=== PATIENT | male | born 1945 | race African-American/Black ===

== ENCOUNTER 2017-01-16 09:29 | Emergency (ER) | payer OTHER ==
[~2017-01-16] VITALS: Ht 182.9 cm; Wt 131.5 kg
--- NOTE | ~2017-01-16 | EKG ---
[address] [address] ELECTROCARDIOGRAM REPORT Name: OSEI SOTO Room #: [facility]#: [id number] Admission: 01/16/17 Attend Phys: Discharge: 01/16/17 Date of : 49 Report #: [id number] THIS REPORT FOR: //name// [facility] ED Test Date: 2017-01-16 Test Time: 09:59:18 Pat Name: OSEI SOTO Department: Room: Gender: Insurance Verification Clerk: Guadalupe ROJAS : 1945 Requested By: Reagan Clark Order Number: [id number] MD: Leroy Borges Measurements Intervals [place] Rate: 57 P: 59 TN: 170 QRS: -3 QRSD: 97 T: 32 QT: 411 QTc: 401 Interpretive Statements Sinus rhythm Compared to ECG 01/16/2017 09:55:14 Atrial fibrillation no longer present Electronically Signed On 01-16-2017 15:44:59 CDT by Leroy Borges [email or web address] <ELECTRONICALLY SIGNED> By: Leroy Borges MD 01/16/17 1544 0959 0959 Leroy Borges MD /STAS
--- NOTE | ~2017-01-16 | EKG ---
[address] [address] ELECTROCARDIOGRAM REPORT Name: OSEI SOTO Room #: [facility]#: [id number] Admission: 01/16/17 Attend Phys: Discharge: 01/16/17 Date of : 49 Report #: [id number] THIS REPORT FOR: //name// [facility] ED Test Date: 2017-01-16 Test Time: 09:55:14 Pat Name: OSEI SOTO Department: Room: Gender: M Refrigeration Operator: [id number] : 1945 Requested By: Reagan Clark Order Number: [id number] MD: Leroy Borges Measurements Intervals [place] Rate: 103 P: [place]: QRS: -12 QRSD: 92 T: 72 QT: 385 QTc: 504 Interpretive Statements Atrial fibrillation Compared to ECG 08/19/2015 16:11:49 Electronically Signed On 01-16-2017 13:03:55 CDT by Leroy Borges [email or web address] <ELECTRONICALLY SIGNED> By: Leroy Borges MD 01/16/17 1303 0955 0955 Leroy Borges MD /STAS
[~2017-01-16 09:29] MED LIST: ASPIRIN325 PO; ATENOLOL 100MG100 MG PO; CATAPRES-TTS 10.1 MG; CATAPRES0.2 MG PO; CIPROFLOXACIN500 M1 PO; CLONIDINE0.1 PO; COUMADIN7.5 MG PO; COZAAR 50 MG TA50 M2 PO; DILTIAZEM 24HR240 M1 PO; FLUZONE 2045 MCG/010; HCTZ; HYDROCHLOROTHIA25 M1 PO; HYDROCODON-ACE1 EAC1 PO; HYDROCODON-ACE1 EAC7; K-DUR 20 MEQ T20 MEQ PO; LASIX 40 MG TAB40 M2 PO; NORVASC10 MG PO; OSELB75 PO; PNEUMOVAX25 MCG/0.5; POTASSIUM20 PO; PRADAXA150 MG PO; PROZAC 10 MG CA10 M1; PROZAC 20 MG20 M1 PO; PROZAC 20 MG20 MG PO; SIMVASTATIN40 MG PO; TOPROL XL25 MG PO; ZANTAC
[2017-01-16 09:55] LABS: ABSOLUTE NEUTROPHILS 5.8 thou/uL (1.4-8.2); BASOPHILS 1.1 % (0.0-2.0); EOSINOPHILS 4.4 % (0.0-3.0); HEMATOCRIT 37.2 % (42.0-52.0); HEMOGLOBIN 12.1 gm/dL (14.0-18.0); LYMPHOCYTES 11.2 % (24.0-44.0); MANUAL DIFF NO; MCH 29.4 pg (26.0-34.0); MCHC 32.5 g/dL (28.0-37.0); MCV 90.4 fL (80.0-100.0); PLATELET COUNT 218 thou/uL (150-400); POLYS 74.3 % (36.0-66.0); RBC 4.11 mil/uL (4.50-6.00); RDW 15.5 % (10.5-14.5); WBC 7.9 thou/uL (4.0-11.0)
[2017-01-16 10:06] LABS: ANION GAP 9 mmol/L (7-16); BUN 15 mg/dL (7-18); CALCIUM 8.8 mg/dL (8.5-10.1); CHLORIDE 106 mmol/L (98-107); CO2 24 mmol/L (21-32); CREATININE 1.1 mg/dL (0.7-1.3); GLUCOSE 107 mg/dL (74-106); POTASSIUM 3.5 mmol/L (3.5-5.1); SODIUM 139 mmol/L (136-145)
[2017-01-16 10:15] LABS: TROPONIN-I < 0.04 ng/mL (<0.04-0.07)
== END 2017-01-16 11:55 | disposition home or self-care (01) ==
LOC: ER 09:29
PROVIDERS: Nurse Practitioner
DX: I11.0 Hypertensive heart disease with heart failure (principal); I50.9 Heart failure, unspecified; Z86.73 Personal history of transient ischemic attack (TIA), and cerebral infarction without residual deficits; Z87.440 Personal history of urinary (tract) infections; Z85.46 Personal history of malignant neoplasm of prostate; Z88.6 Allergy status to analgesic agent

== ENCOUNTER 2017-01-29 12:02 | Emergency (ER) | payer OTHER ==
[~2017-01-29] VITALS: Ht 182.9 cm; Wt 131.5 kg
--- NOTE | ~2017-01-29 | EKG ---
[address] [place] [address] [facility] [address] [place] [address] ELECTROCARDIOGRAM REPORT Name: OSEI SOTO Room #: [facility]#: [id number] Admission: 01/29/17 Attend Phys: Discharge: Date of : 49 Report #: [id number] THIS REPORT FOR: //name// [facility] ED Test Date: 2017-01-29 Test Time: 14:15:12 Pat Name: OSEI SOTO Department: Room: Gender: M Picker Feeder: Guadalupe ROJAS : 1945 Requested By: Uday Matthews Order Number: [id number] MD: Leroy Borges Measurements Intervals [place] Rate: 66 P: LA: QRS: -17 QRSD: 90 T: 13 QT: 463 QTc: 486 Interpretive Statements Atrial fibrillation Inferior infarct, old Compared to ECG 01/16/2017 09:59:18 Myocardial infarct finding now present Sinus rhythm no longer present Electronically Signed On 01-29-2017 15:49:12 CDT by Leroy Borges [email or web address] <ELECTRONICALLY SIGNED> By: Leroy Borges MD 01/29/17 1549 D: 10/1414 141 Leroy Borges MD /STAS
[2017-01-29 13:59] LABS: ABSOLUTE NEUTROPHILS 6.2 thou/uL (1.4-8.2); BASOPHILS 0.9 % (0.0-2.0); EOSINOPHILS 4.3 % (0.0-3.0); HEMOGLOBIN 11.9 gm/dL (14.0-18.0); LYMPHOCYTES 12.6 % (24.0-44.0); MANUAL DIFF NO; MCH 29.4 pg (26.0-34.0); MCHC 33.1 g/dL (28.0-37.0); MCV 88.9 fL (80.0-100.0); PLATELET COUNT 236 thou/uL (150-400); POLYS 72.2 % (36.0-66.0); RBC 4.05 mil/uL (4.50-6.00); RDW 15.4 % (10.5-14.5); WBC 8.6 thou/uL (4.0-11.0)
[2017-01-29 14:08] LABS: ANION GAP 9 mmol/L (7-16); BUN 13 mg/dL (7-18); CALCIUM 9.2 mg/dL (8.5-10.1); CHLORIDE 104 mmol/L (98-107); CO2 23 mmol/L (21-32); CREATININE 1.2 mg/dL (0.7-1.3); GLUCOSE 109 mg/dL (74-106); POTASSIUM 4.1 mmol/L (3.5-5.1); SODIUM 136 mmol/L (136-145)
[2017-01-29 14:16] LABS: ALBUMIN 3.6 g/dL (3.4-5.0); ALKALINE PHOSPHATASE 72 U/L (46-116); SGOT 21 U/L (15-37); SGPT 22 U/L (30-65); TOTAL BILIRUBIN 0.7 mg/dL (<0.1-1.0); TOTAL PROTEIN 7.1 g/dL (6.4-8.2); TROPONIN-I < 0.04 ng/mL (<0.04-0.07)
[2017-01-29] MEDS ORDERED: HEPARIN SO5000 UNIT2 SUBQ (15:29)
[2017-01-29] MEDS ORDERED: LEVAQUIN 500 M500 M2 PO (16:37)
[2017-01-29] MEDS ORDERED: VENTOLIN HFA 1818 GM INH (16:38)
== END 2017-01-29 17:04 | disposition home or self-care (01) ==
LOC: ER 12:02
PROVIDERS: Physician Assistant
DX: J18.9 Pneumonia, unspecified organism (principal); I11.0 Hypertensive heart disease with heart failure; I50.9 Heart failure, unspecified; Z86.73 Personal history of transient ischemic attack (TIA), and cerebral infarction without residual deficits; Z87.440 Personal history of urinary (tract) infections; Z85.46 Personal history of malignant neoplasm of prostate; Z88.6 Allergy status to analgesic agent

== ENCOUNTER 2017-08-22 13:32 | Inpatient (IN) | payer OTHER ==
[~2017-08-22] VITALS: Ht 182.9 cm; Wt 131.5 kg
--- NOTE | ~2017-08-22 | HC ---
[facility] [place] [address] [place] [address] CONSULTATION Name: OSEI SOTO Room #: 456-P [facility] IN M.R.#: [id number] Admission: 08/22/17 Attend Phys: Barrington Armstrong DO Discharge: Date of : 49 Report #: [id number] THIS REPORT FOR: //name// CC: Barrington STATON REASON FOR CONSULTATION: Near syncope. HISTORY OF PRESENT ILLNESS: The patient is a 71-year-old gentleman with a history of permanent atrial fibrillation and longstanding hypertension. His atrial fibrillation has been rate controlled and largely asymptomatic. He has a history of normal coronary vasculature in 2013 and normal left ventricular systolic function. He now presents with a 2-3 week history of lightheadedness and orthostatic dizziness. No fevers, chills, chest pain, shortness of breath, nausea, vomiting or diarrhea. He has felt well other than these episodes of exhaustion and near syncope. There have been no recent medicine changes, although about a month ago, I saw him in the office and he reported that he had run out of his clonidine and blood pressure readings have been higher than usual. It sounds like he recently had this medicine refilled. His blood pressure in the office a month ago was 128/80. ALLERGIES: To ASPIRIN AND NAPROSYN. MEDICATIONS: Include amlodipine 10 mg daily, atenolol 100 mg daily, atorvastatin 40 mg daily, clonidine 0.2 mg 3 times a day, Pradaxa 150 mg twice daily, Prozac 40 mg daily, Lasix 40 mg daily, irbesartan 300 mg daily, and potassium 20 mEq daily. PAST MEDICAL HISTORY: Medical records have been reviewed and include a history of colon cancer, prostate cancer, sleep apnea, and permanent atrial fibrillation. SOCIAL HISTORY: He is a nonsmoker and nondrinker. FAMILY HISTORY: Notable for parents with strokes. REVIEW OF SYSTEMS: All systems negative except as that noted above. PHYSICAL EXAMINATION: GENERAL: Reveals a pleasant gentleman, in no distress. VITAL SIGNS: Blood pressure is 126/70, heart rate of 83 and irregular, he is afebrile. HEENT: There are neither xanthelasma, subcutaneous xanthomata, oral mucosal or digital cyanosis or kyphoscoliosis present. CHEST: Clear to auscultation and percussion. [facility] [address] [place] [address] CONSULTATION Name: OSEI SOTO Room #: [address] [place] [address] IN M.R.#: [id number] Admission: 08/22/17 Attend Phys: Barrington Armstrong DO Discharge: Date of : 49 Report #: [id number] CARDIOVASCULAR: An irregularly irregular rhythm with normal S1, S2. ABDOMEN: Soft and nontender. EXTREMITIES: Without cyanosis, clubbing or edema. Radial pulses are 2+. NEUROLOGIC: He is alert with a nonfocal exam. LABORATORY DATA: Sodium is 138, potassium 3.2, creatinine 1.6, admitting creatinine was 2.3. ProBNP of 561. Troponin of 0. White count 7.6, hemoglobin 11, hematocrit 35, platelet count 217. Chest x-ray is normal. CT of the head is normal. EKG: Atrial fibrillation with poor R-wave progression. IMPRESSION: 1. Permanent atrial fibrillation. 2. Symptomatic hypotension and orthostasis related to volume depletion and/or medications. 3. Acute kidney injury. 4. Chronic diastolic heart failure in the setting of normal left ventricular systolic function. 5. Sleep apnea. 6. Hypercoagulable. RECOMMENDATIONS: 1. Hold diuretics. 2. Continued use of atenolol for rate control of his permanent atrial fibrillation. 3. Resume anticoagulant therapy. 4. Acute kidney injury should resolve with gentle hydration. By: 0741 [id number] Cj Torres MD, FACC /nt
--- NOTE | ~2017-08-22 | 2DMMODE ---
[facility] [address] [place] [address] 2 D/M-MODE ECHOCARDIOGRAM Name: OSEI SOTO Room #: 456-P [facility] IN M.R.#: [id number] Admission: 08/22/17 Attend Phys: Barrington Armstrong, Discharge: Date of : 49 Date of Service: 08/23/17 0906 Report #: [id number] THIS REPORT FOR: //name// APPROVED REPORT Study performed: 08/23/2017 08:15:55 EXAM: Comprehensive 2D, Doppler, and color-flow Echocardiogram Patient Location: Echo lab Room #: [facility] Status: routine BSA: 2.49 HR: 71 bpm BP: 126/74 mmHg Rhythm: Atrial Fibrillation Other Information Study Quality: Adequate Indications Elevated BNP. Hx: Afib, CHF, TIA 2D Dimensions RVDd: 44.03 mm LVEF(%): 63.47 (>50%) IVSd: 12.23 (7-11mm) LVOT Diam: 22.60 (18-24mm) LVDd: 49.05 mm PWd: 11.63 (7-11mm) Ascending Ao: 35.91 (22-36mm) LVDs: 32.12 (25-40mm) Aortic Root: 39.07 mm Acndelario's LVEF: 63.47 % Volumes Left Atrial Volume (Systole) Single Plane 4CH: 83.56 mL Single Plane 2CH: 106.97 mL LA ESV Index: 42.00 mL/m2 Aortic Valve AoV Peak Allen.: 1.18 m/s AO Peak Gr.: 5.62 mmHg LVOT Max P.29 mmHg LVOT Max V: 0.75 m/s ZACHERY Vmax: 2.56 cm2 Mitral Valve MV Decel. Time: 166.70 ms MV E Max Allen.: 1.15 m/s [facility] [place] [place] [address] 2 D/M-MODE ECHOCARDIOGRAM Name: OSEI SOTO Room #: 456-P [facility] IN .R.#: [id number] Admission: 08/22/17 Attend Phys: Barrington Armstrong, Discharge: Date of : 49 Date of Service: 08/23/17 0906 Report #: [id number] Pulmonary Valve PV Peak Allen.: 0.78 m/s PV Peak Gr.: 2.42 mmHg Tricuspid Valve TR Peak Allen.: 2.32 m/s RAP Estimate: 5.00 mmHg TR Peak Gr.: 21.63 mmHg PA Pressure: 27.00 mmHg Left Ventricle The left ventricle is normal size. There is normal LV segmental wall motion. Mild concentric left ventricular hypertrophy. Left ventricular systolic function is normal. LVEF is 55-60%. This study is not technically sufficient to allow evaluation of the LV diastolic function due to atrial fibrillation. Right Ventricle The right ventricle is normal size. The right ventricular systolic function is normal. Atria Left atrium is moderately dilated. Right atrium is mildly dilated. Aortic Valve Aortic valve is mildly calcified, trileaflet. No aortic regurgitation is present. There is no aortic valvular stenosis. Mitral Valve Mild mitral annular calcification. Moderate mitral regurgitation. Tricuspid Valve The tricuspid valve is normal in structure. Mild to moderate tricuspid regurgitation. Estimated PAP is 25-30mmHg. Pulmonic Valve The pulmonary valve is normal in structure. Trace pulmonic regurgitation. Great Vessels Aortic root is mildly dilated. The ascending aorta is normal in size. IVC is normal in size and collapses >50% with inspiration. Pericardium [facility] [address] [place] [address] 2 D/M-MODE ECHOCARDIOGRAM Name: OSEI SOTO Room #: 456-P [facility] IN ..#: [id number] Admission: 08/22/17 Attend Phys: Barrington Armstrong, Discharge: Date of : 49 Date of Service: 08/23/17 0906 Report #: [id number] There is no pericardial effusion. <Conclusion> Left ventricular systolic function is normal. There is normal LV segmental wall motion. LVEF 55-60%. Left atrium is moderately dilated. Aortic valve is mildly calcified, trileaflet. No aortic valvular stenosis or insufficiency. Mild mitral annular calcification. Moderate mitral regurgitation. Mild to moderate tricuspid regurgitation. Estimated pulmonary artery pressure of 25-30mmHg. There is no pericardial effusion. <ELECTRONICALLY SIGNED> By: Cj Torres MD, [facility] 08/23/17905 5 5 Cj Torres MD, FAC /INF
--- NOTE | ~2017-08-22 | EKG ---
[address] [address] ELECTROCARDIOGRAM REPORT Name: OSEI SOTO Room #: 170-5 ADM IN M.R.#: [id number] Admission: 08/22/17 Attend Phys: Barrington Armstrong DO Discharge: Date of : 49 Report #: [id number] THIS REPORT FOR: //name// [facility] ED Test Date: 2017-08-22 Test Time: 13:41:24 Pat Name: OSEI SOTO Department: Room: Gender: M Cryptologist: : 1945 Requested By: Nate Harris Order Number: [id number] MD: Leroy Borges Measurements Intervals [place] Rate: 88 P: [place]: QRS: -17 QRSD: 98 T: 39 QT: 465 QTc: 563 Interpretive Statements Atrial fibrillation Inferior infarct, old Compared to ECG 01/29/2017 14:15:12 Myocardial infarct finding still present Electronically Signed On 08-22-2017 17:05:13 CDT by Leroy Borges [email or web address] <ELECTRONICALLY SIGNED> By: Leroy Borges MD 08/22/17 1705 1341 1341 Leroy Borges MD /STAS
[~2017-08-22 13:32] MED LIST changes: +HEPARIN SO5000 UNIT2 SUBQ; +LEVAQUIN 500 M500 M2 PO; +VENTOLIN HFA 1818 GM INH
[2017-08-22 13:36] VITALS: BP 103/68; BP 128/80
[2017-08-22 13:58] LABS: ABSOLUTE NEUTROPHILS 5.9 thou/uL (1.4-8.2); BASOPHILS 1.1 % (0.0-2.0); HEMATOCRIT 37.6 % (42.0-52.0); LYMPHOCYTES 16.4 % (24.0-44.0); MCH 28.6 pg (26.0-34.0); MCHC 31.9 g/dL (28.0-37.0); MCV 89.7 fL (80.0-100.0); MONOCYTES 9.3 % (1.0-8.0); PLATELET COUNT 256 thou/uL (150-400); POLYS 69.2 % (36.0-66.0); RDW 15.7 % (10.5-14.5); WBC 8.5 thou/uL (4.0-11.0)
[2017-08-22 14:06] LABS: ANION GAP 9 mmol/L (7-16); BUN 36 mg/dL (7-18); CHLORIDE 102 mmol/L (98-107); CO2 26 mmol/L (21-32); CREATININE 2.3 mg/dL (0.7-1.3); GLUCOSE 125 mg/dL (74-106); POTASSIUM 3.3 mmol/L (3.5-5.1); SODIUM 137 mmol/L (136-145)
[2017-08-22 14:14] LABS: ALBUMIN 3.6 g/dL (3.4-5.0); LIPASE 465 U/L (73-393); SGOT 17 U/L (15-37); SGPT 27 U/L (30-65); TOTAL BILIRUBIN 0.5 mg/dL (<0.1-1.0); TOTAL PROTEIN 7.2 g/dL (6.4-8.2); TROPONIN-I < 0.04 ng/mL (<0.06)
[2017-08-22 15:41] LABS: URINE BILIRUBIN NEGATIVE (Negative); URINE BLOOD NEGATIVE (Negative); URINE CLARITY CLEAR; URINE COLOR YELLOW; URINE GLUCOSE-RANDOM* NEGATIVE (Negative); URINE KETONES NEGATIVE (Negative); URINE LEUKOCYTES-REFLEX NEGATIVE (Negative); URINE NITRITE-REFLEX NEGATIVE (Negative); URINE PROTEIN (DIPSTICK) NEGATIVE (Negative); URINE SPECIFIC GRAVITY 1.015 (1.005-1.035); URINE UROBILINOGEN 0.2 E.U./dl (0.2-1.0)
[2017-08-22 16:55] VITALS: BP 104/66
[2017-08-22 17:46] LABS: POTASSIUM 3.5 mmol/L (3.5-5.1)
[2017-08-22 17:52] LABS: CHOLESTEROL 147 mg/dL (<200); HDL CHOLESTEROL 33 mg/dL (>40); LDL CHOLESTEROL 96 mg/dL (<100); SERUM ASSESSMENT Clear; TC:HDL 4.5 Ratio (Not establshd); TRIGLYCERIDE 92 mg/dL (<150); VLDL 18 mg/dL (<40)
[2017-08-22 18:19] LABS: FOLIC ACID 7.1 ng/mL (8.6-58.9); TSH 1.737 uIU/mL (0.358-3.740)
[2017-08-22 20:12] VITALS: BP 107/67
[2017-08-23] VITALS: BP 122/77
[2017-08-23] MEDS ORDERED: NORCO 10-325 T1 EACH PO (00:53)
[2017-08-23] MEDS ORDERED: IRBESARTAN300 MG PO (00:55)
[2017-08-23] MEDS ORDERED: VESICARE10 M1 PO (00:56)
[2017-08-23] MEDS ORDERED: PRADAXA150 MG PO (00:58)
[2017-08-23 04:09] VITALS: BP 126/74
[2017-08-23 05:18] LABS: ABSOLUTE NEUTROPHILS 4.9 thou/uL (1.4-8.2); BASOPHILS 0.6 % (0.0-2.0); EOSINOPHILS 5.4 % (0.0-3.0); HEMATOCRIT 35.8 % (42.0-52.0); HEMOGLOBIN 11.3 gm/dL (14.0-18.0); LYMPHOCYTES 19.7 % (24.0-44.0); MCH 28.5 pg (26.0-34.0); MCHC 31.7 g/dL (28.0-37.0); MONOCYTES 10.2 % (1.0-8.0); PLATELET COUNT 217 thou/uL (150-400); POLYS 64.1 % (36.0-66.0); RBC 3.97 mil/uL (4.50-6.00); RDW 15.5 % (10.5-14.5); WBC 7.6 thou/uL (4.0-11.0)
[2017-08-23 05:38] LABS: CALCIUM 8.9 mg/dL (8.5-10.1); CREATININE 1.6 mg/dL (0.7-1.3); MAGNESIUM 1.8 mg/dL (1.8-2.4); POTASSIUM 3.2 mmol/L (3.5-5.1)
[2017-08-23 08:32] VITALS: BP 147/93
[2017-08-23 15:58] VITALS: BP 111/65
[2017-08-23 20:35] VITALS: BP 103/76
[2017-08-23 22:34] VITALS: BP 124/85
[2017-08-24 07:40] VITALS: BP 143/99
[2017-08-24 07:50] LABS: ABSOLUTE NEUTROPHILS 5.8 thou/uL (1.4-8.2); BASOPHILS 0.7 % (0.0-2.0); EOSINOPHILS 4.8 % (0.0-3.0); HEMATOCRIT 37.2 % (42.0-52.0); HEMOGLOBIN 11.9 gm/dL (14.0-18.0); MCH 28.5 pg (26.0-34.0); MCV 89.1 fL (80.0-100.0); PLATELET COUNT 229 thou/uL (150-400); POLYS 70.5 % (36.0-66.0); RBC 4.17 mil/uL (4.50-6.00); RDW 15.4 % (10.5-14.5); WBC 8.3 thou/uL (4.0-11.0)
[2017-08-24 08:11] LABS: CALCIUM 8.6 mg/dL (8.5-10.1); CREATININE 1.4 mg/dL (0.7-1.3); POTASSIUM 3.8 mmol/L (3.5-5.1)
[2017-08-24 12:39] VITALS: BP 143/99
== END 2017-08-24 14:12 | disposition home or self-care (01) | DRG 682 ==
LOC: ER 13:32 → 4W 16:32 → EROBS 16:32 → 4W 18:19 → SICU 08-23 22:32 → ENTRNSPT 08-24 13:57 → EDTRNSPTSTS 08-24 13:59 → SICU 08-24 14:12
PROVIDERS: Emergency Medicine; Family Medicine; Nurse Practitioner; Physician Assistant
DX: N17.9 Acute kidney failure, unspecified (principal); I50.33 Acute on chronic diastolic (congestive) heart failure; D68.59 Other primary thrombophilia; I95.1 Orthostatic hypotension; E87.6 Hypokalemia; I11.0 Hypertensive heart disease with heart failure; T50.905A Adverse effect of unspecified drugs, medicaments and biological substances, initial encounter; E78.5 Hyperlipidemia, unspecified; I48.2 Chronic atrial fibrillation; E86.9 Volume depletion, unspecified; G47.33 Obstructive sleep apnea (adult) (pediatric); Z79.899 Other long term (current) drug therapy; Z86.73 Personal history of transient ischemic attack (TIA), and cerebral infarction without residual deficits; Z85.46 Personal history of malignant neoplasm of prostate; Z88.8 Allergy status to other drugs, medicaments and biological substances; Z87.891 Personal history of nicotine dependence; Z87.440 Personal history of urinary (tract) infections; Z82.49 Family history of ischemic heart disease and other diseases of the circulatory system; Z88.6 Allergy status to analgesic agent; Z85.038 Personal history of other malignant neoplasm of large intestine
CPT/HCPCS: 10045; 15002

== ENCOUNTER 2019-05-21 02:01 | Inpatient (IN) | payer OTHER ==
[~2019-05-21] VITALS: Ht 152.4 cm; Wt 132.9 kg
[~2019-05-21 02:01] MED LIST changes: +IRBESARTAN300 MG PO; +NORCO 10-325 T1 EACH PO; +VESICARE10 M1 PO
[2019-05-21 02:03] VITALS: BP 106/88
[2019-05-21 02:22] LABS: URINE BILIRUBIN NEGATIVE (Negative); URINE BLOOD TRACE (Negative); URINE CLARITY CLEAR; URINE COLOR YELLOW; URINE GLUCOSE-RANDOM* NEGATIVE (Negative); URINE KETONES NEGATIVE (Negative); URINE LEUKOCYTES-REFLEX NEGATIVE (Negative); URINE NITRITE-REFLEX NEGATIVE (Negative); URINE PROTEIN (DIPSTICK) NEGATIVE (Negative); URINE SPECIFIC GRAVITY 1.025 (1.005-1.035)
[2019-05-21] MEDS ORDERED: LIPITOR 40 MG T40 M1 PO (02:56)
[2019-05-21] MEDS ORDERED: CLONIDINE HCL0.2 M2 PO (02:57)
[2019-05-21 03:00] LABS: ABSOLUTE NEUTROPHILS 6.2 thou/uL (1.4-8.2); BASOPHILS 0.3 % (0.0-2.0); EOSINOPHILS 0.4 % (0.0-3.0); HEMATOCRIT 44.6 % (42.0-52.0); HEMOGLOBIN 14.5 gm/dL (14.0-18.0); LYMPHOCYTES 4.9 % (24.0-44.0); MCH 32.3 pg (26.0-34.0); MCHC 32.6 g/dL (28.0-37.0); MCV 99.2 fL (80.0-100.0); PLATELET COUNT 202 thou/uL (150-400); POLYS 84.4 % (36.0-66.0); RBC 4.49 mil/uL (4.50-6.00); RDW 15.5 % (10.5-14.5); WBC 7.4 thou/uL (4.0-11.0)
[2019-05-21] MEDS ORDERED: ERGOCAL2500 UNIT PO (03:00)
[2019-05-21] MEDS ORDERED: IRON325 PO (03:01)
[2019-05-21] MEDS ORDERED: LASIX 40 MG TAB40 MG PO (03:02)
[2019-05-21] MEDS ORDERED: NORCO 10-325 T1 EAC1 PO (03:04)
[2019-05-21 03:08] LABS: ANION GAP 13 mmol/L (7-16); BUN 17 mg/dL (7-18); CALCIUM 8.3 mg/dL (8.5-10.1); CHLORIDE 102 mmol/L (98-107); CO2 24 mmol/L (21-32); CREATININE 1.3 mg/dL (0.7-1.3); GLUCOSE 133 mg/dL (74-106); POTASSIUM 3.6 mmol/L (3.5-5.1); SODIUM 139 mmol/L (136-145)
[2019-05-21 03:14] LABS: ALBUMIN 3.3 g/dL (3.4-5.0); DIRECT BILIRUBIN < 0.1 mg/dL (<0.1-0.2); SGOT 33 U/L (15-37); SGPT 25 U/L (30-65); TOTAL BILIRUBIN 0.3 mg/dL (<0.1-1.0); TOTAL PROTEIN 7.6 g/dL (6.4-8.2)
[2019-05-21 04:11] VITALS: BP 125/80
[2019-05-21 05:47] VITALS: BP 117/74
[2019-05-21 08:00] VITALS: BP 109/67
--- NOTE | 2019-05-21 12:44 | 2DMMODE ---
[facility] [place] [address] 2 D/M-MODE ECHOCARDIOGRAM Name: OSEI SOTO Room #: 218-P ADM IN M.R.#: [id number] Admission: 05/21/19 Attend Phys: Omar Gibson MD Discharge: Date of : 49 Report #: [id number] THIS REPORT FOR: cc: MAICOL STATON KIMBERLY A. ARNP Lundgren, Craig H. MD [facility] ~ THIS REPORT FOR: //name// APPROVED REPORT Study performed: 05/21/2019 10:27:36 EXAM: Comprehensive 2D, Doppler, and color-flow Echocardiogram Patient Location: Bedside Room #: 218 Status: routine BSA: 2.49 HR: 80 bpm BP: 117/74 mmHg Rhythm: Atrial Fibrillation Other Information Study Quality: Adequate Risk Factors: Cardiac Risk Factors: HTN Indications Atrial Fibrillation Hypertension/HDD Inferior UT 2D Dimensions IVSd: 11.94 (7-11mm) LVOT Diam: 21.00 (18-24mm) LVDd: 53.77 mm PWd: 11.87 (7-11mm) Ascending Ao: 37.37 (22-36mm) LVDs: 39.87 (25-40mm) Aortic Root: 33.35 mm LV Single Plane 4CH: 68.46 % LV Single Plane 2CH: 55.42 % Biplane EF: 62.3 % Volumes Left Atrial Volume (Systole) [facility] [address] [place] [address] 2 D/M-MODE ECHOCARDIOGRAM Name: OSEI SOTO Room #: 218-P ADM IN M.R.#: [id number] Admission: 05/21/19 Attend Phys: Omar Gibson MD Discharge: Date of : 49 Report #: [id number] Single Plane 4CH: 100.55 mL Single Plane 2CH: 72.92 mL LA ESV Index: 38.00 mL/m2 Aortic Valve AoV Peak Allen.: 1.28 m/s AO Peak Gr.: 7.13 mmHg LVOT Max P.06 mmHg LVOT Max V: 1.01 m/s ZACHERY Vmax: 2.63 cm2 Pulmonary Valve PV Peak Allen.: 0.89 m/s PV Peak Gr.: 3.14 mmHg Tricuspid Valve TR Peak Allen.: 2.84 m/s RAP Estimate: 7.00 mmHg TR Peak Gr.: 32.48 mmHg PA Pressure: 40.00 mmHg Left Ventricle The left ventricle is normal size. There is normal LV segmental wall motion. Mild concentric left ventricular hypertrophy. Left ventricular systolic function is normal. The left ventricular ejection fraction is within the normal range. LVEF is 55-60%. This study is not technically sufficient to allow evaluation of the LV diastolic function due to atrial fibrillation. Right Ventricle The right ventricle is normal size. The right ventricular systolic function is normal. Atria Left atrium is mildly dilated. Right atrium is dilated. Aortic Valve Aortic valve is mildly calcified. No aortic regurgitation is present. There is no aortic valvular stenosis. Mitral Valve The mitral valve is normal in structure. Moderate mitral regurgitation. No evidence of mitral valve stenosis. Tricuspid Valve The tricuspid valve is normal in structure. Moderate tricuspid regurgitation. Pulmonary artery pressure is 40 mmHg. Pulmonic Valve The pulmonary valve is normal in structure. Trace pulmonic [facility] [address] [place] [address] 2 D/M-MODE ECHOCARDIOGRAM Name: OSEI SOTOIC Room #: 218-P ADM IN M.R.#: [id number] Admission: 05/21/19 Attend Phys: Omar Gibson MD Discharge: Date of : 49 Report #: [id number] regurgitation. Great Vessels The aortic root is normal in size. The ascending aorta is normal in size. IVC is normal in size and collapses >50% with inspiration. Pericardium There is no pericardial effusion. <Conclusion> Left ventricular systolic function is normal. There is normal LV segmental wall motion. LVEF is 55-60%. Both atria are dilated. Aortic valve is mildly calcified. No aortic regurgitation or stenosis The mitral valve is normal in structure Moderate mitral regurgitation. Moderate tricuspid regurgitation. Pulmonary artery pressure of 40 mmHg. There is no pericardial effusion. <ELECTRONICALLY SIGNED> By: Cj Torres MD, [facility] 05/21/19 1243 1243 1243 Cj Torres MD, [facility] /INF
[2019-05-21 16:30] VITALS: BP 109/69
--- NOTE | 2019-05-21 17:08 | NUR ---
ASSUMED CARE AT 0700, SHIFT ASSESSMENT DONE, MEDS GIVEN, VSS. DENIES PAIN, NAUSEA, VOMITNG. UP WITH STANDBY ASSIST. ROOM AIR, NSR ON TELE. POSITIVE FOR FLU, ON DROPLET PRECAUTIONS. HR WAS HIGH THIS AM, ORDER FOR CARDIZEM, STARTED THIS AM, WAS TURNED OFF FOR LOW HR AT 1300, AT 1600, PT'S HR NOTED TO BE HIGH AGAIN, IN THE 90'S, SO DRIP WAS STARTED AGAIN AT 5 MG/HR. WILL CONTINUE TO ASSESS AND ASSIST WITH ADLs NEEDED.
[2019-05-21 20:04] VITALS: BP 128/84
--- NOTE | 2019-05-21 23:05 | NUR ---
ASSESSMENT: PT REMAIN ALERT AND ORIENT TIMES THREE. SLEEPY YET EASY TO AROUSE. PRESENTING LOW GRADE TEMP OF 37.6, SWATHI STARTED THIS SHIFT. ALL QUESTIONS ANSWERED. RECIEVED BREATHING TREATMENTS WELL. DENIES COUGH AT THIS TIME. CARDIZEM INFUSING AT 5MG/HR. HR STABLE. WILL CONTINUE TO MONITOR.
[2019-05-22] VITALS: BP 91/50
--- NOTE | 2019-05-22 00:35 | NUR ---
ASSESSMENT: CARDIZEM GTT OFF AT 0000 SEE VITALS, PT ALERT AND ORIENT. HR 80, BP 91/50
[2019-05-22 04:53] LABS: BASOPHILS 0.4 % (0.0-2.0); EOSINOPHILS 0.5 % (0.0-3.0); HEMATOCRIT 41.5 % (42.0-52.0); HEMOGLOBIN 13.5 gm/dL (14.0-18.0); LYMPHOCYTES 18.7 % (24.0-44.0); MCH 32.4 pg (26.0-34.0); MCHC 32.6 g/dL (28.0-37.0); MCV 99.5 fL (80.0-100.0); MONOCYTES 9.9 % (1.0-8.0); PLATELET COUNT 181 thou/uL (150-400); POLYS 70.5 % (36.0-66.0); RBC 4.17 mil/uL (4.50-6.00); RDW 15.3 % (10.5-14.5); WBC 7.1 thou/uL (4.0-11.0)
[2019-05-22 05:01] VITALS: BP 122/86
[2019-05-22 05:01] LABS: CALCIUM 8.4 mg/dL (8.5-10.1); MAGNESIUM 1.7 mg/dL (1.8-2.4); POTASSIUM 3.6 mmol/L (3.5-5.1)
[2019-05-22 08:00] VITALS: BP 151/89
--- NOTE | 2019-05-22 09:37 | NUR ---
ASSUMED CARE OF PT APPROX 0715, A&0X4. SEE SEPARATE INTERVENTIONS FOR ASSESSMENTS, ENCOURAGE PT TO USE CALL LIGHT FOR ANY NEEDS. IS VERY [place] WHICH IS WORSENED WITH USE OF MASK ON STAFF'S FACE. HELPS TO COME CLOSE. GOOD APPETITE.
[2019-05-22 12:00] VITALS: BP 107/77
[2019-05-22] MEDS ORDERED: OSELTAMIVIR PHO75 MG PO (17:10)
[2019-05-22] MEDS ORDERED: CEFDINIR300 MG PO (17:12)
[2019-05-22] MEDS ORDERED: PROAIR HFA8.5 GM INH (17:12)
[2019-05-22 18:01] VITALS: BP 107/77
--- NOTE | 2019-05-29 11:21 | EKG ---
[facility] [place] [address] ELECTROCARDIOGRAM REPORT Name: OSEI SOTO Room #: 218-P [facility] IN M.R.#: [id number] Admission: 05/21/19 Attend Phys: Omar Gibson MD Discharge: 05/22/19 Date of : 49 Report #: [id number] THIS REPORT FOR: cc: MAICOL STATON KIMBERLY A. ARNP Couchonnal,Leroy Lees MD ~ THIS REPORT FOR: //name// [facility] ED Test Date: 2019-05-21 Test Time: 02:11:00 Pat Name: OSEI SOTO Department: Room: 218 Gender: M Size Changer: SUMAN : 1945 Requested By: Faviola Amaya Order Number: [id number] MD: Leroy Borges Measurements Intervals [place] Rate: 169 P: DC: QRS: -26 QRSD: 81 T: 86 QT: 272 QTc: 457 Interpretive Statements Atrial fibrillation with rapid V-rate Ventricular premature complex Inferior infarct, old Lateral leads are also involved Compared to ECG 08/22/2017 13:41:24 Ventricular premature complex(es) now present Myocardial infarct finding still present Electronically Signed On 05-21-2019 8:41:55 ACCOUNTING MACHINE OPERATOR by Leroy Borges [email or web address] <ELECTRONICALLY SIGNED> By: Leroy Borges MD 05/21/19840 0 0 Leroy Borges MD /EPI
== END 2019-05-22 19:09 | disposition home or self-care (01) | DRG 193 ==
LOC: ER 02:01 → 2N 03:47 → EROBS 03:47 → 2N 04:37
PROVIDERS: Emergency Medicine; Nurse Practitioner; ADMIT Hospitalist
DX: J10.00 Influenza due to other identified influenza virus with unspecified type of pneumonia (principal); I50.33 Acute on chronic diastolic (congestive) heart failure; I48.21 Permanent atrial fibrillation; E87.2 Acidosis; D68.59 Other primary thrombophilia; E78.5 Hyperlipidemia, unspecified; R35.0 Frequency of micturition; G47.33 Obstructive sleep apnea (adult) (pediatric); I11.0 Hypertensive heart disease with heart failure; N32.81 Overactive bladder; G47.00 Insomnia, unspecified; F32.9 Major depressive disorder, single episode, unspecified; E55.9 Vitamin D deficiency, unspecified; Z79.01 Long term (current) use of anticoagulants; Z86.73 Personal history of transient ischemic attack (TIA), and cerebral infarction without residual deficits; Z85.46 Personal history of malignant neoplasm of prostate; Z87.891 Personal history of nicotine dependence; Z88.8 Allergy status to other drugs, medicaments and biological substances; Z82.49 Family history of ischemic heart disease and other diseases of the circulatory system
CPT/HCPCS: 10081

== ENCOUNTER → 2019-07-03 | Outpatient (CLI) | payer OTHER ==
[~2019-07-03] MED LIST changes: +CEFDINIR300 MG PO; +CLONIDINE HCL0.2 M2 PO; +ERGOCAL2500 UNIT PO; +IRON325 PO; +LASIX 40 MG TAB40 MG PO; +LIPITOR 40 MG T40 M1 PO; +NORCO 10-325 T1 EAC1 PO; +OSELTAMIVIR PHO75 MG PO; +PROAIR HFA8.5 GM INH
--- NOTE | 2019-07-06 22:59 | SLE ---
[facility] [place] [address] POLYSOMNOGRAPHY STUDY Name: OSEI SOTO Room #: [facility]#: [id number] Admission: 07/03/19 Attend Phys: Serg Olivas MD Discharge: Date of : 49 Report #: [id number] THIS REPORT FOR: //name// CC: David Olivas MD DATE OF SERVICE: 07/03/2019 ATTENDING PHYSICIAN: Dr. Serg Olivas. The patient is a 73-year-old who weighs 290 pounds with a BMI of 40.4. The patient's [place] score was 7. The patient underwent diagnostic sleep study performed at [facility]. During the night study, the patient spent 457 minutes in bed and slept for 383 minutes with a sleep efficiency of 84%. Sleep latency was 25 minutes with a REM latency of 99 minutes. Sleep architecture showed increased stage 1 and stage 2 sleep, absent slow wave and reduced REM sleep. During the night study, the patient had 28 obstructive apneas, 2 mixed apneas, 35 central apneas and 8 hypopneas. The patient's apnea hypopnea index was 11.4 per hour with a REM index of 14.5 per hour and a supine index of 18.6 per hour. EKG monitoring revealed an average heart rate of 81 beats per minute. No sustained arrhythmias observed. PLMS were seen at an index of 53 per hour, but only 3 per hour caused EEG arousals. Nocturnal oximetry study revealed an average oxygen saturation of 95% with lowest of 82%. Less than 1 minute was spent in oxygen saturation less than 89%. Due to low AHI, the patient did not meet the split night criteria for CPAP initiation. IMPRESSION: 1. Mild NORTH with moderate increase during supine sleep. Total AHI 11.4 per hour with a supine AHI of 18.6 per hour. The patient's NORTH was a combination of obstructive and central apneas. 2. No clinically significant nocturnal hypoxia. 3. Severe periodic limb movements without any significant EEG arousals. RECOMMENDATIONS: 1. If the patient is clinically symptomatic or has comorbid conditions, then [facility] [address] [place] [address] POLYSOMNOGRAPHY STUDY Name: OSEI SOTO Room #: [facility]#: [id number] Admission: 07/03/19 Attend Phys: Serg Olivas MD Discharge: Date of : 49 Report #: [id number] consider treatment of sleep apnea with either CPAP versus oral appliance. 2. Once the patient is optimally treated, then follow up in 4-6 weeks to assess compliance with treatment and to document clinical improvement. 3. Weight loss is strongly advised. 4. Avoid supine sleep. 5. Cautioned regarding driving until symptoms of sleep apnea resolve with the above recommendation. 6. Avoid [employer] depressants. <ELECTRONICALLY SIGNED> By: David Ortiz MD 07/06/19 2259 1141 1151 David Ortiz MD /aileen
== END ==
LOC: SLEEPLAB 12:48
DX: G47.33 Obstructive sleep apnea (adult) (pediatric) (principal); G47.61 Periodic limb movement disorder

== ENCOUNTER → 2019-07-31 | Outpatient (CLI) | payer OTHER | LOC: SJCVC 12:58 | DX: I21.29 ST elevation (STEMI) myocardial infarction involving other sites (principal); R94.31 Abnormal electrocardiogram [ECG] [EKG]; I10 Essential (primary) hypertension; I48.21 Permanent atrial fibrillation; I11.0 Hypertensive heart disease with heart failure; I50.32 Chronic diastolic (congestive) heart failure; G47.33 Obstructive sleep apnea (adult) (pediatric); E78.5 Hyperlipidemia, unspecified; C61 Malignant neoplasm of prostate; Z79.01 Long term (current) use of anticoagulants ==

== ENCOUNTER → 2019-08-13 | Outpatient (CLI) | payer OTHER | LOC: CAT 09:50 | DX: J84.10 Pulmonary fibrosis, unspecified (principal); J61 Pneumoconiosis due to asbestos and other mineral fibers; E04.9 Nontoxic goiter, unspecified; I25.10 Atherosclerotic heart disease of native coronary artery without angina pectoris; J98.4 Other disorders of lung; R59.0 Localized enlarged lymph nodes; Z77.018 Contact with and (suspected) exposure to other hazardous metals ==

== ENCOUNTER 2019-08-17 14:21 | Inpatient (IN) | payer OTHER ==
[~2019-08-17] VITALS: Ht 182.9 cm; Wt 129.3 kg
[2019-08-17 14:31] VITALS: BP 133/80
[2019-08-17 15:11] LABS: ABSOLUTE NEUTROPHILS 8.6 thou/uL (1.4-8.2); BASOPHILS 0.6 % (0.0-2.0); EOSINOPHILS 2.6 % (0.0-3.0); HEMATOCRIT 39.5 % (42.0-52.0); HEMOGLOBIN 13.2 gm/dL (14.0-18.0); MCH 32.8 pg (26.0-34.0); MCHC 33.4 g/dL (28.0-37.0); MCV 98.1 fL (80.0-100.0); MONOCYTES 10.4 % (1.0-8.0); PLATELET COUNT 184 thou/uL (150-400); POLYS 77.4 % (36.0-66.0); RBC 4.02 mil/uL (4.50-6.00); RDW 15.4 % (10.5-14.5); WBC 11.1 thou/uL (4.0-11.0)
[2019-08-17 15:21] LABS: ANION GAP 7 mmol/L (7-16); BUN 14 mg/dL (7-18); CALCIUM 8.3 mg/dL (8.5-10.1); CHLORIDE 103 mmol/L (98-107); CO2 26 mmol/L (21-32); CREATININE 1.3 mg/dL (0.7-1.3); GLUCOSE 102 mg/dL (74-106); POTASSIUM 3.9 mmol/L (3.5-5.1); SODIUM 136 mmol/L (136-145)
[2019-08-17 15:27] LABS: ALBUMIN 3.2 g/dL (3.4-5.0); SGOT 18 U/L (15-37); SGPT 23 U/L (30-65); TOTAL BILIRUBIN 0.7 mg/dL (<0.1-1.0); TROPONIN-I <0.06 ng/mL (<0.06)
[2019-08-17 15:43] LABS: BE(vivo) -1.5 mmol/L (-2 to +3); PCO2 29.5 mmHg (35.0-45.0); PO2 59.8 mmHg (80.0-100.0); sO2 92.8 % (92.0-98.0)
[2019-08-17 19:05] VITALS: BP 124/92
[2019-08-17 19:37] VITALS: BP 124/92
[2019-08-17 20:05] VITALS: BP 152/106
[2019-08-17 23:05] VITALS: BP 144/93
[2019-08-18 05:52] VITALS: BP 137/79
[2019-08-18 06:15] LABS: HEMATOCRIT 39.5 % (42.0-52.0); HEMOGLOBIN 13.3 gm/dL (14.0-18.0); MCH 32.9 pg (26.0-34.0); MCHC 33.6 g/dL (28.0-37.0); MCV 98.1 fL (80.0-100.0); RBC 4.02 mil/uL (4.50-6.00); RDW 15.5 % (10.5-14.5); WBC 10.2 thou/uL (4.0-11.0)
--- NOTE | 2019-08-18 06:21 | NUR ---
PT ARRIVED TO UNIT APPROX 1999, ADMISSION AND ASSESSMENT COMPLETED, CONSENTS SIGNED. PT REPORTS NONPRODUCTIVE, CONGESTED COUGH AND SOB WITH ACTIVITY; O2 SATS MID 90'S ON RA. HAS BEEN AFIB ON TELE OVERNIGHT, HR UPPER 90-LOW 100'S, WITH OCCASIONALY JUMPS TO 120'S WHEN UP OUT OF BED. MINIMAL EDEMA NOTED, BUT LUNG SOUNDS ARE COARSE WITH FINE CRACKLES AND WHEEZES IN BILATERAL BASES. ER IV HAD LEAKED/INFILTRATED; REPLACED IV WITH A 22 IN RIGHT FA. NO OTHER CONCERNS, WILL CONTINUE TO MONITOR.
[2019-08-18 06:23] LABS: CALCIUM 8.6 mg/dL (8.5-10.1); CREATININE 1.1 mg/dL (0.7-1.3)
[2019-08-18 08:22] VITALS: BP 143/93
--- NOTE | 2019-08-18 09:00 | EKG ---
[facility] [place] [address] [place] [address] ELECTROCARDIOGRAM REPORT Name: OSEI SOTO Room #: 360-P ADM IN M.R.#: [id number] Admission: 08/17/19 Attend Phys: Rashad Burnett MD Discharge: Date of : 49 Report #: [id number] THIS REPORT FOR: cc: FAM - Family physician unknown FAM - Family physician unknown Cj Torres MD [facility] THIS REPORT FOR: //name// [facility] ED Test Date: 2019-08-17 Test Time: 16:09:16 Pat Name: OSEI SOTO Department: Room: [facility] Gender: M Manager Continuous Improvement: : 1945 Requested By: Uday Matthews Order Number: [id number] MD: Cj Torres Measurements Intervals [place] Rate: 96 P: UT: QRS: -13 QRSD: 101 T: 2 QT: 363 QTc: 459 Interpretive Statements Atrial fibrillation Low voltage, precordial leads Compared to ECG 05/21/2019 02:11:00 Ventricular response has slowed Electronically Signed On 08-18-2019 8:59:11 CDT by Cj Torres [email or web address] <ELECTRONICALLY SIGNED> By: Cj Torres MD, FACC 08/18/19 0859 1609 1609 Cj Torres MD, [facility] /EPI
--- NOTE | 2019-08-18 14:21 | NUR ---
INITIAL ASSESSMENT: SW reviewed chart and spoke with nursing and attending physician. Pt was admitted from home due to exacerbation of CHF. Pt is in Enhanced Isolation to r/o COVID-19. Results pending. Pt is currently on IV lasix. Discharge home is anticipated in 1-2 days. SW spoke with pt via phone. Introduced role of SW. Pt appears to be alert/orientated x 4. Pt reports he lives at home with his family. Prior to admission, pt was independent with ADLs. Pt has a cane to assist with ambulation. Pt's PCP is Dr. Erika Arrieta at [facility]. Plan is for pt to discharge home when medically stable. No discharge needs identified at this time. SW is following to assist as needed with disharge planning.
--- NOTE | 2019-08-18 14:53 | NUR ---
ASSUMED CARE OF PT AT 0700. PT ALERT AND ORIENTED X4 IN NO ACUTE DISTRESS. BREATHING COMFORTABLY ON ROOM AIR. FAINT CRACKLES TO AUSCULTATION. DIURESING WELL. INDEPEDENT IN ROOM. CALLS OUT APPROPRIATELY. POSSIBLE D/C PENDING COVID19 RESULTS. WILL CONT TO MONITOR.
[2019-08-18 21:04] VITALS: BP 127/78
[2019-08-19 03:50] LABS: CALCIUM 8.4 mg/dL (8.5-10.1); CREATININE 1.3 mg/dL (0.7-1.3)
[2019-08-19 06:08] VITALS: BP 150/103
--- NOTE | 2019-08-19 06:14 | NUR ---
ASSUMED CARE AT 1900. PT DENIES PAIN OR NAUSEA. REPORTS MODERATE IMPROVEMENT OF SOB; LUNG SOUNDS STILL COARSE BUT NO WHEEZES AND FEWER CRACKLES COMPARED TO PREVIOUS SHIFT. COVID SWAB CAME BACK NEGATIVE, RESULT CALLED TO OVERNIGHT NURSE PRACTIONER. NO OTHER CONCERNS, WILL CONTINUE TO MONITOR.
[2019-08-19] MEDS ORDERED: LASIX 40 MG TAB40 M1 PO (10:33)
[2019-08-19] MEDS ORDERED: POTASSIUM20 PO (10:33)
--- NOTE | 2019-08-19 13:20 | NUR ---
SW reviewed chart and spoke with attending physician. Pt is progressing towards goals for discharge. COVID-19 test results are negative. Pt switched from IV lasix to PO. Pt is on IV abx for pneumonia. Pt to remain in Enhanced Isolation. Discharge home is anticipated for tomorrow. No discharge needs identifed at this time. PAOLA is following to assist as needed with discharge planning.
--- NOTE | 2019-08-19 18:53 | NUR ---
1850 assumed care of py after report from [place].
[2019-08-19 19:34] VITALS: BP 114/73
--- NOTE | 2019-08-19 19:42 | NUR ---
ASSUMED CARE OF THE PT AT 0700. PT IS UP AD SACHA WITH A CANE. PT EXPRESSED THAT HE IS READY TO D/C MULTIPLE TIMES. R FOREARM DRY AND INTACT. CARDIOLOIS CONSULTED AND XRAY COMPLETED. PT IS RA AND WAS UP AD SACHA WITH NO C/O SOA. PER DOCTO PT IS TO STAY ON ISOLATION UNTIL 2ND COVID TEST IS NEG, WHICH CANNOT BE COMPLETED UNTIL 24HRS AFTER FIRST TEST RESULTS WERE CONIRMED, ADVISED NOC NURSE, NO ORDERS ENTERED INTO THE SYSTEM. PT UPSET THAT CALL LIGHT WAS NOT ANSWERED WHEN REQUESTED BECAUSE HE NEEDED A NEW GOWN, APOLOGIZED AND EXPLAINED TO PT THAT STAFF HAD MULTIPLE SITUATIONS OCCURING AT THE SAME TIME, PT UNDERSTOOD. LUNG ARE COARSE, NON DIMINSHED, ALL PULSES ARE STRONG AND CAP REFILL LESS THAN. BED IN LOWEST POSITION, CALL LIGHT IS WITHIN REACH. WILL CONTINUE TO MONITOR THE PT.
[2019-08-19 21:56] VITALS: BP 135/94
[2019-08-20 03:52] VITALS: BP 135/97
[2019-08-20 08:18] VITALS: BP 148/84
--- NOTE | 2019-08-20 13:14 | NUR ---
DISCHARGE NOTE: SW reviewed chart and spoke with nursing and attending physician. Pt is progressing towards goals for discharge. Pt's repeat COVID-19 test is negative. Pt to discharge home later today. Awaiting final discharge orders/summary at this time. SW attempted to call pt in his room. No answer. No discharge needs identified at this time. SW is available to assist should needs arise.
[2019-08-20] MEDS ORDERED: K-DUR 20 MEQ T20 MEQ PO (14:12)
[2019-08-20] MEDS ORDERED: CEFUROXIME500 MG PO (14:12)
[2019-08-20] MEDS ORDERED: ZITHROMAX500 MG PO (14:12)
[2019-08-20 14:43] VITALS: BP 148/84
--- NOTE | 2019-08-20 15:07 | NUR ---
ASSUMED PATIENT CARE AT 0700. 2ND COVID NEGATIVE. PROGRESSING TOWARDS POC GOALS. DC HOME NOW.
== END 2019-08-20 15:14 | disposition home or self-care (01) | DRG 291 ==
LOC: ER 14:21 → EROBS 17:18 → 3W 17:18
PROVIDERS: Internal Medicine; Physician Assistant; ADMIT Hospitalist
DX: I11.0 Hypertensive heart disease with heart failure (principal); J96.01 Acute respiratory failure with hypoxia; J15.9 Unspecified bacterial pneumonia; I48.21 Permanent atrial fibrillation; D68.59 Other primary thrombophilia; I50.33 Acute on chronic diastolic (congestive) heart failure; M06.9 Rheumatoid arthritis, unspecified; G47.33 Obstructive sleep apnea (adult) (pediatric); E66.01 Morbid (severe) obesity due to excess calories; C61 Malignant neoplasm of prostate; D72.829 Elevated white blood cell count, unspecified; Z88.8 Allergy status to other drugs, medicaments and biological substances; Z09 Encounter for follow-up examination after completed treatment for conditions other than malignant neoplasm; Z86.73 Personal history of transient ischemic attack (TIA), and cerebral infarction without residual deficits; Z87.891 Personal history of nicotine dependence; Z68.38 Body mass index [BMI] 38.0-38.9, adult; Z79.01 Long term (current) use of anticoagulants; Z20.828 Contact with and (suspected) exposure to other viral communicable diseases; Z82.49 Family history of ischemic heart disease and other diseases of the circulatory system
CPT/HCPCS: 10879

== ENCOUNTER → 2019-09-03 | Outpatient (CLI) | payer OTHER ==
[~2019-09-03] MED LIST changes: +CEFUROXIME500 MG PO; +LASIX 40 MG TAB40 M1 PO; +ZITHROMAX500 MG PO
== END ==
LOC: SJCVC 14:17
DX: I48.21 Permanent atrial fibrillation (principal); R94.31 Abnormal electrocardiogram [ECG] [EKG]; I11.0 Hypertensive heart disease with heart failure; I50.32 Chronic diastolic (congestive) heart failure; G47.33 Obstructive sleep apnea (adult) (pediatric); E78.5 Hyperlipidemia, unspecified; C61 Malignant neoplasm of prostate; J45.909 Unspecified asthma, uncomplicated; E66.9 Obesity, unspecified; Z79.899 Other long term (current) drug therapy; Z79.01 Long term (current) use of anticoagulants; Z87.891 Personal history of nicotine dependence

== ENCOUNTER → 2019-09-17 | Outpatient (CLI) | payer OTHER | END | disposition home or self-care (01) | LOC: RAD 10:16 | DX: J98.6 Disorders of diaphragm (principal) ==

== ENCOUNTER → 2019-12-04 | Outpatient (CLI) | payer OTHER | LOC: SJCVC 14:32 | PROVIDERS: ATTEND Internal Medicine | DX: R94.31 Abnormal electrocardiogram [ECG] [EKG] (principal); I48.21 Permanent atrial fibrillation; I11.0 Hypertensive heart disease with heart failure; I50.32 Chronic diastolic (congestive) heart failure; G47.33 Obstructive sleep apnea (adult) (pediatric); E78.5 Hyperlipidemia, unspecified; C61 Malignant neoplasm of prostate; Z79.01 Long term (current) use of anticoagulants ==

== ENCOUNTER → 2020-06-07 | Outpatient (CLI) | payer OTHER | LOC: SJCVC 12:55 | PROVIDERS: ATTEND Internal Medicine | DX: I48.21 Permanent atrial fibrillation (principal); R94.31 Abnormal electrocardiogram [ECG] [EKG]; I11.0 Hypertensive heart disease with heart failure; I50.32 Chronic diastolic (congestive) heart failure; G47.33 Obstructive sleep apnea (adult) (pediatric); E78.5 Hyperlipidemia, unspecified; C61 Malignant neoplasm of prostate; J45.909 Unspecified asthma, uncomplicated; E78.00 Pure hypercholesterolemia, unspecified; E66.9 Obesity, unspecified; Z86.73 Personal history of transient ischemic attack (TIA), and cerebral infarction without residual deficits; Z79.899 Other long term (current) drug therapy; Z82.49 Family history of ischemic heart disease and other diseases of the circulatory system; Z87.891 Personal history of nicotine dependence; Z79.01 Long term (current) use of anticoagulants ==

== ENCOUNTER → 2020-06-17 | Outpatient (CLI) | payer OTHER | LOC: SJCVCIMAG 06-10 08:21 | PROVIDERS: ATTEND Internal Medicine | DX: I08.3 Combined rheumatic disorders of mitral, aortic and tricuspid valves (principal); I70.203 Unspecified atherosclerosis of native arteries of extremities, bilateral legs; I11.9 Hypertensive heart disease without heart failure; Z87.891 Personal history of nicotine dependence ==

== ENCOUNTER → 2020-12-08 | Outpatient (CLI) | payer OTHER | LOC: SJCVC 13:33 | PROVIDERS: ATTEND Internal Medicine | DX: R94.31 Abnormal electrocardiogram [ECG] [EKG] (principal); I48.21 Permanent atrial fibrillation; I11.0 Hypertensive heart disease with heart failure; I50.32 Chronic diastolic (congestive) heart failure; E78.5 Hyperlipidemia, unspecified; G47.33 Obstructive sleep apnea (adult) (pediatric); C61 Malignant neoplasm of prostate; Z79.01 Long term (current) use of anticoagulants; D64.9 Anemia, unspecified; E78.00 Pure hypercholesterolemia, unspecified; E66.9 Obesity, unspecified; Z82.49 Family history of ischemic heart disease and other diseases of the circulatory system; Z87.891 Personal history of nicotine dependence; Z79.899 Other long term (current) drug therapy; Z88.8 Allergy status to other drugs, medicaments and biological substances ==

== ENCOUNTER → 2021-06-10 | Outpatient (CLI) | payer OTHER | LOC: SJCVC 13:26 | PROVIDERS: ATTEND Internal Medicine | DX: R94.31 Abnormal electrocardiogram [ECG] [EKG] (principal); C61 Malignant neoplasm of prostate; I48.21 Permanent atrial fibrillation; I11.0 Hypertensive heart disease with heart failure; I50.32 Chronic diastolic (congestive) heart failure; E78.5 Hyperlipidemia, unspecified; G47.33 Obstructive sleep apnea (adult) (pediatric); J45.909 Unspecified asthma, uncomplicated; E78.00 Pure hypercholesterolemia, unspecified; E66.9 Obesity, unspecified; G47.30 Sleep apnea, unspecified; Z79.01 Long term (current) use of anticoagulants; Z86.73 Personal history of transient ischemic attack (TIA), and cerebral infarction without residual deficits; Z79.899 Other long term (current) drug therapy; Z87.891 Personal history of nicotine dependence; Z88.4 Allergy status to anesthetic agent; Z88.8 Allergy status to other drugs, medicaments and biological substances ==